=== PATIENT | female | born 1940 | race Caucasian/White ===

== ENCOUNTER → 2019-10-02 | Outpatient (CLI) | payer MEDICARE ==
[~2019-10-02] MED LIST: CLOP75TA57 PO; DENO60DI SQ; LEVO150T PO; MELO15TA23 PO; NEBI10TA3 PO
--- NOTE | 2019-10-02 13:04 | CARD ---
MR#: [id number] Date of Study: 10/02/2019 Ordering Physician: ANITA WOODARD, Referring Physician: ANITA WOODARD, Tech: Nany Villavicencio APPROVED REPORT EXAM: Two-dimensional and M-mode echocardiogram with Doppler and color Doppler. Other Information Quality : AverageHR: 58bpm INDICATION Hypertension/HCVD RISK FACTORS Smoking 2D DIMENSIONS Left Atrium(2D)3.6 (1.6-4.0cm)IVSd1.2 (0.7-1.1cm) Aortic Root(2D)2.7 (2.0-3.7cm)LVDd4.2 (3.9-5.9cm) LVOT Diameter2.0 (1.8-2.4cm)PWd0.9 (0.7-1.1cm) LVDs2.5 (2.5-4.0cm)FS (%) 40.9 % SV57.5 mlLVEF(%)72.0 (>50%) Aortic Valve AoV Peak Morgan.146.1cm/sAoV VTI36.5cm AO Peak GR.8.5mmHgLVOT Peak Morgan.77.5cm/s LVOT VTI 21.48cmAO Mean GR.4mmHg GABRIELLA (VMAX)1.66kz0GCR (VTI)1.93cm2 Mitral Valve MV E Ubpzrmen49.3cm/sMV DECEL ZJOC347ei MV A Nacwptml87.5cm/sE/A Ratio0.7 Pulmonary Valve PV Peak Lxziurmr32.8cm/sPV Peak Grad.3mmHg Tricuspid Valve TR P. Yljgpeum769bz/sRAP RAALSNBB3qkKw TR Peak Gr.31qiLwOPXS10hzHg Pulmonary Vein S1 Yrukfspz40.0cm/sD2 Rxijksit27.8cm/s LEFT VENTRICLE The left ventricle is normal size. There is borderline to mild concentric left ventricular hypertroph y. The left ventricular systolic function is normal and the ejection fraction is within normal range. The Ejection Fraction is 55-60%. There is normal LV segmental wall motion. Transmitral Doppler flow pattern is Grade I-abnormal relaxation pattern. RIGHT VENTRICLE The right ventricle is normal size. There is normal right ventricular wall thickness. The right ventr icular systolic function is normal. ATRIA The left atrium size is normal. The right atrium size is normal. The interatrial septum is intact wit h no evidence for an atrial septal defect or patent foramen ovale as noted on 2-D or Doppler imaging. AORTIC VALVE The aortic valve is thickened but opens well. Doppler and Color Flow revealed no significant aortic r egurgitation. There is no significant aortic valvular stenosis. MITRAL VALVE The mitral valve is normal in structure and function. There is no evidence of mitral valve prolapse. There is no mitral valve stenosis. Doppler and Color-flow revealed trace mitral regurgitation. TRICUSPID VALVE The tricuspid valve is normal in structure and function. Doppler and Color Flow revealed trace tricus pid regurgitation with an estimated PAP of30 mmHg. There is no tricuspid valve prolapse or vegetation . There is no tricuspid valve stenosis. PULMONIC VALVE The pulmonic valve is not well visualized. Doppler and Color Flow revealed no pulmonic valvular regur gitation. There is no pulmonic valvular stenosis. GREAT VESSELS The aortic root is normal in size. The IVC is normal in size and collapses >50% with inspiration. PERICARDIAL EFFUSION There is no evidence of significant pericardial effusion. Critical Notification Critical Value: No <Conclusion> The left ventricular systolic function is normal and the ejection fraction is within normal range. Th e Ejection Fraction is 55-60%. There is normal LV segmental wall motion. Signed by : Kwabena Copeland, Electronically Approved : 10/02/2019 13:04:27
== END | disposition home or self-care (01) ==
LOC: ECHO 10:01
PROVIDERS: ATTEND Internal Medicine Cardiovascular Disease
DX: I11.9 Hypertensive heart disease without heart failure (principal)
CPT/HCPCS: 93306

== ENCOUNTER → 2019-12-10 | Outpatient (CLI) | payer MEDICARE ==
[2019-12-10 09:17] LABS: BASO # 0.1 x10^3/uL (0.0-0.2); BASO % 1 % (0-3); EOS # 0.3 x10^3/uL (0.0-0.7); EOS % 4 % (0-3); HEMATOCRIT 39.4 % (36.0-47.0); HEMOGLOBIN 13.1 g/dL (12.0-15.5); LYMPH # 1.5 x10^3/uL (1.0-4.8); LYMPH % 23 % (24-48); MEAN CORPUSCULAR HEMOGLOBIN 32 pg (25-35); MEAN CORPUSCULAR HGB CONC 33 g/dL (31-37); MEAN CORPUSCULAR VOLUME 95 fL (79-100); MONO # 0.5 x10^3/uL (0.0-1.1); MONO % 7 % (0-9); NEUT # 4.1 x10^3uL (1.8-7.7); NEUT % 64 % (31-73); PLATELET COUNT 282 x10^3/uL (140-400); RED BLOOD COUNT 4.16 x10^6/uL (3.50-5.40); RED CELL DISTRIBUTION WIDTH 12.7 % (11.5-14.5); WHITE BLOOD COUNT 6.4 x10^3/uL (4.0-11.0)
[2019-12-10 09:31] LABS: ALBUMIN 3.6 g/dL (3.4-5.0); CALCIUM 9.1 mg/dL (8.5-10.1); CREATININE 1.3 mg/dL (0.6-1.0); GFR 39.5; POTASSIUM 4.3 mmol/L (3.5-5.1); TOTAL BILIRUBIN 0.6 mg/dL (0.2-1.0); TOTAL PROTEIN 7.3 g/dL (6.4-8.2)
[2019-12-10 09:48] LABS: BACTERIA,URINE MOD /HPF (0-FEW); BILIRUBIN,URINE NEG (NEG); CLARITY,URINE HAZY; COLOR,URINE YELLOW; GLUCOSE,URINE NEG (NEG); NITRITE,URINE NEG (NEG); SQUAMOUS EPITHELIAL CELL,UR FEW /LPF
[2019-12-10 09:49] LABS: HYALINE CASTS, URINE FEW /HPF
[2019-12-10 10:22] LABS: SEDIMENTATION RATE 11 (0-25)
--- NOTE | 2019-12-12 13:03 | RAD ---
EXAM: BILATERAL DIGITAL 3D SCREENING MAMMOGRAPHY. HISTORY: Routine mammographic screening. TECHNIQUE: Bilateral digital 3D and tomographic images were obtained in CC and MLO projections. Computer-aided detection was applied. COMPARISON: 12/21/2017. COMPOSITION: C. The breasts are heterogeneously dense, which may obscure small masses. FINDINGS: Coarse and vascular calcifications are benign. There are no suspicious masses, microcalcifications or architectural distortion. The parenchymal pattern is stable. BI-RADS CATEGORY 2: Benign. RECOMMENDATION: 1. Routine screening mammography in one year. If mammography demonstrates dense breast tissue (heterogenously dense or extremely dense, category C or D), which could hide abnormalities, and if other risk factors for breast cancer have been identified, supplemental screening tests that may be suggested by the ordering physician may be of benefit. Dense breast tissue, in and of itself, is a relatively common condition. Therefore, this information is not provided to cause undue concern, but rather to raise awareness and to promote discussion with the referring physician regarding the presence of other risk factors, in addition to dense breast tissue. The results of this mammography examination is provided to the patient and referring physician. The patient should contact their referring physician if any questions or concerns exist regarding this report. PQRS compliance statement - Patient information was entered into a reminder system with a target due date for the next mammogram. "Our facility is accredited by the [employer] Mammography Program." Electronically signed by: Santiago Worthy MD (12/12/2019 1:00 PM) [id number]
== END | disposition home or self-care (01) ==
LOC: MAMMO 08:11
PROVIDERS: ATTEND Family Medicine
DX: Z12.31 Encounter for screening mammogram for malignant neoplasm of breast (principal); N64.89 Other specified disorders of breast; I10 Essential (primary) hypertension; Z79.899 Other long term (current) drug therapy
CPT/HCPCS: 36415; 77063; 77067; 80053; 80061; 81001; 85025; 85651; 86431; 87086

== ENCOUNTER → 2021-01-06 | Outpatient (CLI) | payer MEDICARE ==
[~2021-01-06] MED LIST changes: +CALC500T30 PO; +CHOL400T36 PO; +CLOP75TA PO; +HYDR-2145 PO; +LOSA100T14 PO; +LYSINE; +MV-M1CAP15 PO; +NIAC500T PO; +OMEG1CAP50 PO; +REGADENOSON 0.4 MG/5 ML DISP.SYRIN. IV ONE
--- NOTE | 2021-01-06 15:43 | RAD ---
MR#: [id number] Date of Study: 01/06/2021 Ordering Physician: ANITA WOODARD, Referring Physician: NIKO BAY Tech: RT Amberly SchafferR) (N) APPROVED REPORT Test Type: Pharmacological Stress Nurse/Tech: RT Karime (Souleymane) (N) Test Indications: abdominal aorta aneurysm without rupture, leg cramping Cardiac History: stent in groin 11 years ago Medications: see EHR Medical History: see EHR Resting ECG: sinus rhythm Resting Heart Rate: 64 bpm Resting Blood Pressure: 136/53mmHg Pretest Chest Pain: None Nurse/Tech Notes Consent: The procedure was explained to the patient in lay terms. Informed consent was witnessed. Moises eout was entered into [employer]. History and Stress Test performed by RT Karime (Souleymane) (N) Pharm. Details Pharmacologic stress testing was performed using 0.4mg per 5ml of regadenoson given intravenously ove r 7-10 seconds. Stress Symptoms dyspnea, headache, leg cramping POST EXERCISE Reason for Termination: Infusion complete Max HR: 201 bpm Max Blood Pressure: 164/60mmHg INTERPRETATION Stress EKG Conclusion: No evidence of ischemic changes. Imaging Protocol IMAGE PROTOCOL: Rest Tc-99m/stress Tc-99m 1 day Rest: Stress: Viability: Radiopharm.Tc99m KztzpywyvAq71y Sestamibi Ohkl96rAl 31.8mCi Duration 15min. 10min. Img Date 01/06/2021 01/06/2021 Inj-Img Fvkn46tey. 60min. Rest Admin Site:IV - Left AntecubitalAdministrator: RT Karime (Souleymane)(N) Stress Admin Site: IV - Left AntecubitalAdministrator: RT Maritza Schaffer)(N) STRESS DATA End Diast. Vol.49.0mlAv. Heart Rate72.0bpm End Syst. Vol.3.0mlCO Index BSA0.0L/min Myocardial Mass98.0gEject. Ccthstqb74.0% Stress Rates Pk. Fill Rate2.47EDV/secLVtime Pk. Fill 88.35msec Pk. Empty Rate4.49ESV/secLVtime Pk. Tiwtp823.74msec 1/3 Pk. Fill1.77EDV/sec Stress Scores Regional WT0.00Summed WT0.00 Regional WM0.00Summed WM0.00 The rest and stress images show normal perfusion, normal contraction and thickening. LV Perf. Quant 17 Seg. SSS1.00 17 Seg. SRS0.00 17 Seg. SDS1.00 Stress Defect Extent (% LAD)0.00Rest Defect Extent (% LAD)0.00Rev. Defect Extent (% LAD)0.00 Stress Defect Extent (% LCX) 7.50Rest Defect Extent (% LCX)0.00Rev. Defect Extent (% LCX)0.00 Stress Defect Extent (% RCA)0.00Rest Defect Extent (% RCA)0.00Rev. Defect Extent (% RCA)0.00 Stress Defect Extent (% CARLOS)1.30Rest Defect Extent (% CARLOS)0.00Rev. Defect Extent (% CARLOS)0.00 Other Information Quality:Good Risk Assessment: Low Risk Conclusion 1. No evidence of EKG changes with stress testing. 2. Normal perfusion at stress/rest. 3. Low risk study. 4. EF > 60%. Signed by : Kwabena Copeland, Electronically Approved : 01/06/2021 15:42:38
--- NOTE | 2021-01-06 21:36 | CARD ---
MR#: [id number] Date of Study: 01/06/2021 Ordering Physician: ANITA WOODARD, Referring Physician: ANITA WOODARD, Tech: Bisi Hyman RDCS APPROVED REPORT EXAM: Two-dimensional and M-mode echocardiogram with Doppler and color Doppler. Other Information Quality : Good INDICATION Abdominal Aortic Aneurysm 2D DIMENSIONS RVDd2.3 (2.9-3.5cm)Left Atrium(2D)3.6 (1.6-4.0cm) IVSd0.8 (0.7-1.1cm)Aortic Root(2D)2.3 (2.0-3.7cm) LVDd4.5 (3.9-5.9cm)LVOT Diameter2.2 (1.8-2.4cm) PWd0.8 (0.7-1.1cm)LVDs3.2 (2.5-4.0cm) FS (%) 29.4 %SV52.3 ml LVEF(%)56.5 (>50%) Aortic Valve AoV Peak Morgan.129.3cm/sAoV VTI23.6cm AO Peak GR.6.7mmHgLVOT Peak Morgan.118.3cm/s LVOT VTI 20.21cmAO Mean GR.3mmHg GABRIELLA (VMAX)3.55dg5FOL (VTI)3.12cm2 Mitral Valve MV E Atvfgjfw20.4cm/sMV DECEL PPEM854jc MV A Tokeuzsp552.2cm/sE/A Ratio0.5 Pulmonary Vein S1 Izqsmloc36.6cm/sD2 Shbjkfqe60.1cm/s LEFT VENTRICLE The left ventricle is normal size. There is normal left ventricular wall thickness. The left ventricu lar systolic function is normal and the ejection fraction is within normal range. The Ejection Fracti on is 60-65%. There is normal LV segmental wall motion. Transmitral Doppler flow pattern is Grade I-a bnormal relaxation pattern. RIGHT VENTRICLE The right ventricle is normal size. The right ventricular systolic function is normal. ATRIA The left atrium size is normal. The right atrium size is normal. The interatrial septum is intact wit h no evidence for an atrial septal defect or patent foramen ovale as noted on 2-D or Doppler imaging. AORTIC VALVE The aortic valve is calcified but opens well. Doppler and Color Flow revealed no significant aortic r egurgitation. There is no significant aortic valvular stenosis. MITRAL VALVE The mitral valve is calcified but opens well. Mitral annular calcification is mild. There is no evide nce of mitral valve prolapse. There is no mitral valve stenosis. Doppler and Color Flow revealed no m itral valve regurgitation noted. TRICUSPID VALVE The tricuspid valve is normal in structure and function. Doppler and Color Flow revealed no tricuspid valve regurgitation noted. There is no tricuspid valve stenosis. PULMONIC VALVE The pulmonic valve is not well visualized. Doppler and Color Flow revealed trace to mild pulmonic keyoan vular regurgitation. There is no pulmonic valvular stenosis. GREAT VESSELS The aortic root is normal in size. The ascending aorta is not well seen. The IVC is normal in size an d collapses >50% with inspiration. PERICARDIAL EFFUSION There is no evidence of significant pericardial effusion. Critical Notification Critical Value: No <Conclusion> The left ventricular systolic function is normal and the ejection fraction is within normal range. Th e Ejection Fraction is 60-65%. There is normal LV segmental wall motion. Signed by : Kwabena Copeland, Electronically Approved : 01/06/2021 21:36:24
== END ==
LOC: NM 07:20
PROVIDERS: ATTEND Internal Medicine Cardiovascular Disease
DX: I08.8 Other rheumatic multiple valve diseases (principal); I71.4 Abdominal aortic aneurysm, without rupture
CPT/HCPCS: 78452; 93017; 93306; A9500; J2785

== ENCOUNTER → 2021-01-14 | Outpatient (CLI) | payer MEDICARE ==
[~2021-01-14] MED LIST changes: -REGADENOSON 0.4 MG/5 ML DISP.SYRIN. IV ONE
--- NOTE | 2021-01-16 14:56 | RAD ---
DATE: 01/14/2021 11:37 AM EXAM: MAMMO JOHAN SCREENING BILATERAL HISTORY: Screening COMPARISON: 12/10/2019 Bilateral CC and MLO views of the breasts were performed. Bilateral breast tomosynthesis was performed in CC and MLO projections. This study was interpreted with the benefit of Computerized Aided Detection (CAD). FINDINGS: Breast Density: SCATTERED The breast parenchyma shows scattered fibroglandular densities. Breast parenchyma level B No suspicious masses, microcalcifications or architectural distortion is present to suggest malignancy in either breast. The visualized axillae are unremarkable. IMPRESSION: No mammographic evidence of malignancy. BI-RADS CATEGORY: 1 NEGATIVE RECOMMENDED FOLLOW-UP: 12M 12 MONTH FOLLOW-UP Annual screening mammography is recommended, unless clinically indicated sooner based on symptoms or change in physical exam. PQRS compliance statement: Patient information was entered into a reminder system with a target due date for the next mammogram. Mammography is a sensitive method for finding small breast cancers, but it does not detect them all and is not a substitute for careful clinical examination. A negative mammogram does not negate a clinically suspicious finding and should not result in delay in biopsying a clinically suspicious abnormality. "Our facility is accredited by the [employer] Mammography Program."
== END ==
LOC: MAMMO 11:07
PROVIDERS: ATTEND Family Medicine
DX: Z12.31 Encounter for screening mammogram for malignant neoplasm of breast (principal)
CPT/HCPCS: 77063; 77067

== ENCOUNTER → 2022-01-12 | Outpatient (CLI) | payer MEDICARE ==
--- NOTE | 2022-01-12 09:40 | RAD ---
MR#: [id number] Date of Study: 01/12/2022 Ordering Physician: ANITA WOODARD, Referring Physician: ANITA WOODARD, Tech: Zuleyma Garcia RVT, JH APPROVED REPORT Patient Location: OUT-PATIENT Indications AAA Grayscale images of the abdominal aorta demonstrates moderate to diffuse atherosclerotic plaque. No high-grade focal stenosis identified. AP diameter does not reveal any obvious evidence of aneurysm. Normal velocities are noted. Bilateral common iliac vessels demonstrate no evidence of aneurysm wit h moderately elevated velocities suggestive of approximately 50% stenosis. Risk Factors Smoking Duplex Results A/PTransverseLongitudinal Proximal Aorta 2.3cm1.9cm Mid Aorta 1.6cm1.6cm Distal Aorta 1.5cm1.3cm Rt. Common Iliac Artery0.7cm0.8cm Lt. Common Iliac Artery 0.8cm0.8cm Doppler VelocityWaveform Proximal Aorta 68.0 cm/sec Aorta Mid. 67.0 cm/sec Distal Aorta 101.0 cm/sec Rt. Common Iliac Sbakyy254.0 cm/sec Lt. Common Iliac Artery 177.0 cm/sec Critical Notification Critical Value: No <Conclusion> 1. No significant abdominal aortic aneurysm 2. 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
--- NOTE | 2022-01-13 12:36 | CARD ---
MR#: [id number] Date of Study: 01/12/2022 Ordering Physician: ANITA WOODARD, Referring Physician: Zo BAY: [facility] APPROVED REPORT EXAM: Two-dimensional and M-mode echocardiogram with Doppler and color Doppler. Other Information Quality : AverageHR: 70bpm Rhythm : NSR INDICATION Hypertension/HCVD Surgery/Intervention Remote Femoral stent (PAD) RISK FACTORS Hypertension Hyperlipidemia Smoking 2D DIMENSIONS Left Atrium(2D)3.7 (1.6-4.0cm)IVSd1.1 (0.7-1.1cm) Aortic Root(2D)2.7 (2.0-3.7cm)LVDd3.8 (3.9-5.9cm) LVOT Diameter1.8 (1.8-2.4cm)PWd1.1 (0.7-1.1cm) LA Nztdfm87 (18-58mL)LVDs2.3 (2.5-4.0cm) FS (%) 39.8 %SV43.4 ml Aortic Valve AoV Peak Morgan.123.4cm/sAoV VTI23.9cm AO Peak GR.6.1mmHgLVOT Peak Morgan.91.1cm/s LVOT VTI 19.31cmAO Mean GR.4mmHg GABRIELLA (VMAX)1.07vc9HZU (VTI)1.97cm2 Mitral Valve MV E Tdlmbxky69.9cm/sMV E Peak Gr.5mmHg MV DECEL BCNR115xkQA A Nystcmse913.7cm/s MV E Mean Gr.2mmHgE/A Ratio0.6 Pulmonary Valve PV Peak Ynaxixri97.3cm/sPV Peak Grad.4mmHg Tricuspid Valve TR P. Rsrsmvvn246rw/sTR Peak Gr.24mmHg Pulmonary Vein S1 Bkupefzg33.4cm/sD2 Ktbnsyzs16.1cm/s LEFT VENTRICLE The left ventricle is normal size. There is normal left ventricular wall thickness. The left ventricu lar systolic function is normal and the ejection fraction is within normal range. LV ejection fractio n of 55 to 60%. There is normal LV segmental wall motion. Transmitral Doppler flow pattern is Grade I -abnormal relaxation pattern. No left ventricle thrombus noted on this study. There is no ventricular septal defect visualized. There is no left ventricular aneurysm. There is no mass noted in the left ventricle. RIGHT VENTRICLE The right ventricle is normal size. There is normal right ventricular wall thickness. The right ventr icular systolic function is normal. ATRIA The left atrium size is normal. The right atrium size is normal. The interatrial septum is intact wit h no evidence for an atrial septal defect or patent foramen ovale as noted on 2-D or Doppler imaging. AORTIC VALVE The aortic valve is mildly sclerotic. The aortic valve is tri-cuspid. Doppler and Color Flow revealed no significant aortic regurgitation. There is no significant aortic valvular stenosis. There is no a ortic valvular vegetation. MITRAL VALVE Mitral annular calcification is mild. There is no evidence of mitral valve prolapse. There is no mitr al valve stenosis. Doppler and Color-flow revealed trace mitral regurgitation. TRICUSPID VALVE The tricuspid valve is normal in structure and function. Doppler and Color Flow revealed mild tricusp id regurgitation. The PA pressure was estimated at 30 mmHg. There is no tricuspid valve prolapse or v egetation. There is no tricuspid valve stenosis. PULMONIC VALVE The pulmonary valve is normal in structure and function. Doppler and Color Flow revealed no pulmonic valvular regurgitation. There is no pulmonic valvular stenosis. GREAT VESSELS The aortic root is normal in size. The ascending aorta is normal in size. The pulmonary artery is nor mal. The IVC is normal in size and collapses >50% with inspiration. PERICARDIAL EFFUSION There is no pleural effusion. There is no evidence of significant pericardial effusion. Critical Notification Critical Value: No <Conclusion> The left ventricle is normal size. The left ventricular systolic function is normal and the ejection fraction is within normal range. LV ejection fraction of 55 to 60%. There is normal LV segmental wall motion. Doppler and Color Flow revealed no significant aortic regurgitation. There is no significant aortic valvular stenosis. Doppler and Color-flow revealed trace mitral regurgitation. Doppler and Color Flow revealed mild tricuspid regurgitation. The PA pressure was estimated at 30 mmHg. Signed by : Blayne Houston MD Electronically Approved : 01/13/2022 12:34:21
== END ==
LOC: ECHO 07:55
PROVIDERS: ATTEND Internal Medicine Cardiovascular Disease
DX: I08.3 Combined rheumatic disorders of mitral, aortic and tricuspid valves (principal); I70.0 Atherosclerosis of aorta; I10 Essential (primary) hypertension
CPT/HCPCS: 76770; 93306

== ENCOUNTER → 2022-01-12 | Outpatient (CLI) | payer MEDICARE ==
--- NOTE | 2022-01-12 14:53 | RAD ---
INDICATION: 81 years of age asymptomatic female patient presents for screening mammography. No person al family history of breast cancer. TECHNIQUE: Full field craniocaudal and mediolateral oblique images of both breasts were obtained usi ng digital technique with tomosynthesis and also analyzed with computer-aided detection software. COMPARISON: Prior mammographic imaging dating back to 12/30/2015. BREAST COMPOSITION: Category C: The breast tissue is heterogeneously dense, which could obscure detec tion of small masses. FINDINGS: No suspicious masses, microcalcifications or architectural distortion is present to suggest malignanc y in either breast. Benign bilateral vascular calcifications. The visualized axillae are unremarkable. IMPRESSION: No mammographic evidence of malignancy. RECOMMENDATION: Annual screening mammography is recommended, unless clinically indicated sooner based on symptoms or change in physical exam. BIRADS 2: BENIGN This study was interpreted with the benefit of Computerized Aided Detection (CAD). ?Your patient's mammogram demonstrates that she has dense breast tissue (breast density category C or D), which could hide abnormalities, and if she has other risk factors for breast cancer that have be en identified, she might benefit from supplemental screening tests that may be suggested by you as he r ordering physician. Dense breast tissue, in and of itself, is a relatively common condition. Theref ore, this information is not provided to cause undue concern, but rather to raise your awareness and to promote discussion with your patient regarding the presence of other risk factors, in addition to dense breast tissue. Your patient's mammography results will be sent to her. Patient information is entered into the reminder system with a target due date for the next screening mammogram. Mammography is the most sensitive method for finding small breast cancers, but it does not detect the m all and is not a substitute for careful clinical examination. A negative mammogram does not negate a clinically suspicious finding and should not result in delay in biopsying a clinically suspicious a bnormality. "Our facility is accredited by the [employer] Mammography Program." Electronically signed by: Avery Yancey DO (01/12/2022 2:50 PM) [id number]
== END ==
LOC: MAMMO 08:55
PROVIDERS: ATTEND Family Medicine
DX: Z12.31 Encounter for screening mammogram for malignant neoplasm of breast (principal)
CPT/HCPCS: 77063; 77067